=== PATIENT | female | born 1945 | race Caucasian/White ===

== ENCOUNTER → 2022-07-03 12:45 | Outpatient (CLI) | payer MEDICARE, SELFPAY ==
--- NOTE | 2022-07-03 12:49 | DI.RAD.S_ITS ---
PROCEDURE: FL BARIUM SWALLOW W SPEECH INDICATIONS: OROPHARYNGEAL DYSPHAGIA COMPARISON: None. TECHNIQUE: Examination was conducted in conjunction with speech pathology per standard protocol. In the lateral projection, filming was performed of the patient swallowing. AP projection filming may also be performed with patient swallowing. COMPARISON: FINDINGS: Function: The oral preparatory phase appears normal, with mild premature spilling. The subsequent oral propulsive phase, pharyngeal phase, and esophageal phase of swallowing also appear normal with all proffered substances. No laryngotracheal penetration or aspiration. No pathologic vallecular pooling. Morphology: No cricopharyngeal bar is identified. No cervical esophageal webs. No Zenker's diverticulum. No strictures. Mild delay of the barium tablet passing at the gastroesophageal junction. IMPRESSION: No aspiration. Mild premature spilling at the oral phase. Mild delay of the barium tablet passing through the gastroesophageal junction. Please see separately dictated speech pathologist's report. Dictated by: Oscar Cooper M.D. on 07/03/2022 at 17:36 Approved by: Oscar Cooper M.D. on 07/03/2022 at 17:38
--- NOTE | 2022-07-04 08:59 | ST.SWALLOW ---
Visit Care Team Role Provider Type Saturnino Burroughs MD Attending Provider Physician Referring Provider Specialty: General Surgery Address: [address] [place], [address] Email: Modified Barium Swallow Study PRODUCE ASSISTANT Modified Barium Swallow Study Start: 07/03/22 17:09 Freq: Status: Active Protocol: Document 07/03/22 17:10 LNK (Rec: 07/03/22 17:46 LNK [id number]) Modified Barium Swallow Study Total Time Visit Start Time 11:30 Visit Stop Time 14:00 Total Visit Minutes 30 Referral Referring Physician Saturnino Ascencio Reason for Referral dysphagia Setting Setting Outpatient Care Patient Information Identification Type Name,Date of Patient History Pt was seen for a Modified Barium Swallow Study (MBSS) at the referral of Dr. Sevilla . According to the pt, she has noted that when she is eating and talking to friends during the meal or she is eating to quickly, she has a sense that solid foods get stuck in her throat (pointing to sternal notch). She stated that large pills (i.e., calcium) can elicit the globus sensation. She denies choking or regurgitation of solids. Pt reported that the sensation is a dull ache that may take a couple of hours to go away. When the pt chews well this sensation does not occur. The last time she experiences this sensation was at Thanksgiving. Pt has a familial history of Parkinson' s disease (father, brother), breast cancer with radiation treatment (2013). She also noted that she experiences symptoms of GERD at times. Subjective Observations Pt appeared to be [place]. She has an ENT appointment scheduled. Pt was seated in the fluoroscopy chair with directions and procedure described for her. She indicated she understood and agreed to proceed. Lateral View Textures Administered Trials Presented Thin Liquid via Spoon,Thin Liquid via Cup,Pudding Thick Liquid via Spoon,Regular Textures,Barium Tablet Oral Phase Source: MBSIMP (TM) (C) Bolus Specific Scoring Grid Lip Closure No Impairment (WNL) Tongue Control During Bolus Hold No Impairment (WNL) Bolus Prep/Mastication No Impairment (WNL) Bolus Transport/Lingual Motion No Impairment (WNL) A/P Lingual Propulsion Delay Yes: with solids premature spillage of bolus head to valeculla Oral Residue Minimal Impairment Residue Clearing WFL Additional Oral Phase Observations OME and DKS were observed to be WNL for form and function. Oral Phase Observations: mastication, bolus hold and control as well as A/P transition were observed to be WNL. Pharyngeal Phase Source: MBSIMP (TM) (C) Bolus Specific Scoring Grid Delayed Initiation of Pharyngeal Swallow Yes: with solids premature spillage of bolus head to valeculla Number of Seconds Delayed (seconds) ~1s Soft Palate Elevation No Impairment (WNL) Tongue Base Strength/Range of Motion Minimal Impairment Residue Along the Tongue Base No Laryngeal Elevation WFL Anterior Hyoid Movement WFL Epiglottic Range of Motion WFL Vallecular Residue Yes: cleared with subsequent swallows Clearance of Vallecular Residue Minimal Impairment Laryngeal Vestibular Closure No Impairment (WNL) Pharyngeal Stripping Wave No Impairment (WNL) Posterior Pharyngeal Wall Residue No Upper Esophageal Sphincter Opening WFL Residue in the Pyriform Sinuses No Esophageal Clearance Upright Position Mild Impairment Pharyngoesophageal Backflow Observed No Additional Pharyngeal Phase Observations Minimal tongue base strength was observed to demonstrate minimal weakness; however, hyolaryngeal elevation and movement, epiglottal inversion and airway protection were noted to be WFL. No laryngeal penetration or tracheal aspiration were observed. Premature spillage of the laryngeal head to the valeculla was observed with solids only and did not appear to increase risk for aspiration. A/P View Textures Administered Trials Presented Thin Liquid via Spoon,Barium Tablet A/P View Observations Pharyngeal Contraction WFL Vocal Fold Function Good Esophageal Function Slowed Clearing,Narrowing Esophageal Clearance Upright Position Mild Impairment Esophageal Observations Esophageal Function Esophageal narrowing was observed below the UES. The esophagus as observed to have an shape of an hourglass shapt, most notable with liquids ( possibly Schotzky's ring (?). With a barium tablet, there was narrowing near the distal esophagus near LE , in a possible spasm, that resulted in pooling of contrast and the tablet, restricting flow into the stomach. A GI referral is recommended for further assessment. Clinical Impressions Dysphagia Type esophageal Patient Appropriate for Therapy No: No oropharyngeal dysphagia noted Recommendations Diet Liquids Order Thin Diet Order Regular Medication Recommendation As Tolerated,Crushed in Carrier Comments Pt needs to chew foods well; alternate liquids/solids; take small bites; Aspiration Precautions Recommended Precautions Alternate Liquids/Solids,Small Bites/Sips Additional Precautions Minimize talking when chewing/ swallowing Treatment Plan Recommended Referrals GI Consult Compensatory Strategies Recommendations Small Bites and Sips,Alternate Liquids/Solids
== END ==
PROVIDERS: Referring Provider Surgery; Visit Provider Surgery
DX: R13.12 Dysphagia, oropharyngeal phase (principal)
CPT/HCPCS: 74230; 92611